=== PATIENT | female | born 1970 | race African-American/Black ===

== ENCOUNTER 2017-04-17 10:18 | Emergency (ER) | payer OTHER ==
[~2017-04-17] VITALS: Ht 162.6 cm; Wt 108.1 kg
[~2017-04-17 10:18] MED LIST: ALPRAZOLAM1 MG PO; ATORVASTATIN CA40 MG PO; BACLOFEN10 MG PO; BENADRYL ALLERG25 MG PO; BENTYL20 MG PO; CARVEDILOL3.125 MG PO; COL-RITE100 M1 PO; COUMADIN10 MG PO; COUMADIN5 MG PO; COUMADIN7.5 MG PO; CYCLOBENZAPRINE10 MG PO; DEPAKOTE125 MG PO; DESYREL100 MG PO; DILAUDID2 MG PO; ELIQUIS5 MG PO; FE C TABLET1 EACH PO; FEOSOL325 MG PO; FLAGYL500 MG PO; FLEXERIL10 MG PO; FOLIC ACID1 MG PO; GABAPENTIN800 MG PO; HYDROCODON-ACE1 EA11 PO; KLONOPIN0.5 M1 PO; KLONOPIN1 MG PO; KLONOPIN2 MG PO; LAMICTAL100 MG PO; LAMICTAL25 MG PO; LEVAQUIN500 MG PO; LEVAQUIN750 MG PO; LEVO-T100 MCG PO; LEVO-T88 MCG PO; LEVOXYL175 MCG PO; LIDOCAINE700 MG TD; LIDODERM 5% P1 PATCH TD; LITHIUM CARBON450 MG PO; MEDROL DOSEPAK4 MG PO; METFORMIN HCL500 MG PO; METHOCARBAMOL500 MG PO; MORPHINE SULFAT15 MG PO; NAPROSYN500 MG PO; NORCO 5/3251 TABLET PO; OXYCODONE HCL15 MG PO; PANTOPRAZOLE SO40 MG PO; PEPCID20 MG PO; PREDNISONE50 MG PO; PROMETHAZINE HC25 M1 PO; PROTONIX40 MG PO; ROBAXIN500 MG PO; SEROQUEL200 MG PO; SEROQUEL300 MG PO; SYNTHROID125 MCG PO; SYNTHROID175 MCG PO; TRAMADOL HCL50 MG PO; TRAZODONE HCL150 MG PO; ULTRAM50 MG PO; VICODIN 5-3001 EACH PO; VITAMIN D2000 INTUN PO; VITAMIN D2000 UNIT PO; VITAMIN E1000 UNI1 PO; XANAX0.5 MG PO; ZOFRAN ODT4 MG PO; ZOFRAN4 MG PO; ZOLOFT100 MG PO
[2017-04-17 13:19] LABS: HEMATOCRIT 34.4 % (36.0-46.0); MCV 93.7 FL (83-99); RBC DIS.WIDTH-CV 17.2 % (11.8-14.6); RBC DIS.WIDTH-SD 59.5 % (39-53); RED BLOOD COUNT 3.67 M/uL (3.80-5.20)
[2017-04-17 13:26] LABS: CHLORIDE 111 mEq/L (99-109); GLUCOSE 103 mg/dL (70-99); POTASSIUM 3.7 mEq/L (3.7-5.4); SODIUM 142 mEq/L (136-147)
[2017-04-17 13:29] LABS: ANION GAP 7 MEQ/L (2-14)
[2017-04-17 13:33] LABS: GFR ESTIMATE (CALCULATED) > 59 mL/min/; UREA NITROGEN (BUN) 9 mg/dL (9-23)
[2017-04-17 13:51] LABS: TROP-I INTERPRETATION NEGATIVE; TROPONIN-I < 0.01 ng/mL (0.0-0.30)
[2017-04-17 14:03] LABS: PLAT.SUFFICIENCY ADEQUATE; PLATELET CLUMPS PRESENT - PLATELET COUNT APPEARS ADQ.; PLATELET COUNT UNABLE TO REPORT K/uL (156-360)
[2017-04-17 15:31] LABS: TROP-I INTERPRETATION NEGATIVE; TROPONIN-I < 0.01 ng/mL (0.0-0.30)
[2017-04-17 15:41] VITALS: BP 122/71
== END 2017-04-17 15:43 | disposition home or self-care (01) ==
LOC: EME 10:18
PROVIDERS: Emergency Medicine
DX: R07.89 Other chest pain (principal); K21.9 Gastro-esophageal reflux disease without esophagitis; F41.9 Anxiety disorder, unspecified; F32.9 Major depressive disorder, single episode, unspecified; Z86.711 Personal history of pulmonary embolism; Z87.442 Personal history of urinary calculi; Z91.040 Latex allergy status; Z88.8 Allergy status to other drugs, medicaments and biological substances
CPT/HCPCS: 71010; 71275; 80048; 84484; 85027; 93005; 99281; 99285; J1200; J2270; J2930; S0028

== ENCOUNTER 2017-05-07 15:04 | Emergency (ER) | payer OTHER ==
[~2017-05-07] VITALS: Ht 162.6 cm; Wt 108.4 kg
[2017-05-07 16:56] LABS: HEMATOCRIT 33.9 % (36.0-46.0); MCH 30.9 PG (29.0-34.0); MCHC 32.7 G/DL (30.0-36.0); MCV 94.4 FL (83-99); RBC DIS.WIDTH-SD 57.4 % (39-53); RED BLOOD COUNT 3.59 M/uL (3.80-5.20); WHITE BLOOD COUNT 10.6 K/uL (4.1-10.2)
[2017-05-07 17:04] LABS: CHLORIDE 106 mEq/L (99-109); POTASSIUM 5.6 mEq/L (3.7-5.4); SODIUM 141 mEq/L (136-147)
[2017-05-07 17:07] LABS: GLUCOSE 187 mg/dL (70-99)
[2017-05-07 17:09] LABS: TOTAL BILIRUBIN 0.2 mg/dL (0.0-1.0)
[2017-05-07 17:10] LABS: ALKALINE PHOSPHATASE 94 IU/L (3-129); GFR ESTIMATE (CALCULATED) > 59 mL/min/
[2017-05-07 17:11] LABS: UREA NITROGEN (BUN) 13 mg/dL (9-23)
[2017-05-07 17:14] LABS: LIPASE 49 U/L (1.0-51.0)
[2017-05-07 17:19] LABS: QUANTITATIVE HCG < 4.0 MIU/ML
[2017-05-07 17:23] LABS: ADD MIUA? YES; BILIRUBIN NEGATIVE; BLOOD NEGATIVE; COLOR YELLOW ((YELLOW)); GLUCOSE (STRIP) NEGATIVE; KETONES 5; LEUKOCYTES NEGATIVE; NITRITE NEGATIVE; PROTEIN (STRIP) 100; SPECIFIC GRAVITY 1.029 (1.000-1.030); UROBILINOGEN 0.2 MG/DL (0.2-1.0)
[2017-05-07 17:37] LABS: MEAN PLAT.VOLUME 11.6 uM^3 (9.5-12.4); PLAT.SUFFICIENCY DECREASED
[2017-05-07 17:39] LABS: PLATELET COUNT 167 K/uL (156-360)
[2017-05-07 17:46] LABS: TROP-I INTERPRETATION NEGATIVE; TROPONIN-I < 0.01 ng/mL (0.0-0.30)
[2017-05-07 18:00] LABS: RED BLOOD CELLS NONE SEEN /HPF (0-5)
[2017-05-07 18:01] LABS: BACTERIA 1+ /HPF; EPITHELIAL CELLS 2+ /HPF; MUCUS 1+ /LPF; UCUL ADDED? NO; WHITE BLOOD CELLS NONE SEEN /HPF (0-5)
[2017-05-07 18:04] LABS: INTER. NORMALIZED RATIO 0.8; PROTHROMBIN TIME 9.5 SEC (10.2-12.9)
[2017-05-07 18:07] LABS: PTT 27.4 SEC (25-37)
[2017-05-07 23:01] LABS: TROP-I INTERPRETATION NEGATIVE; TROPONIN-I < 0.01 ng/mL (0.0-0.30)
[2017-05-07] MEDS ORDERED: ZITHROMAX Z-PA250 MG PO (23:06)
[2017-05-07] MEDS ORDERED: PEPCID20 MG PO (23:11)
[2017-05-07 23:26] VITALS: BP 154/89
== END 2017-05-07 23:27 | disposition home or self-care (01) ==
LOC: EME 15:04
PROVIDERS: Physician Assistant Medical
DX: J18.9 Pneumonia, unspecified organism (principal); R10.31 Right lower quadrant pain; R10.33 Periumbilical pain; K50.90 Crohn's disease, unspecified, without complications; I50.9 Heart failure, unspecified; K21.9 Gastro-esophageal reflux disease without esophagitis; Z86.718 Personal history of other venous thrombosis and embolism; Z86.711 Personal history of pulmonary embolism; Z87.442 Personal history of urinary calculi; Z90.49 Acquired absence of other specified parts of digestive tract; Z98.51 Tubal ligation status; Z98.1 Arthrodesis status; Z96.89 Presence of other specified functional implants
CPT/HCPCS: 71020; 71275; 74177; 80053; 81003; 83690; 84484; 84702; 85027; 85610; 85730; 93005; 93970; 99281; 99285; J1200; J2270; J2405; J2930; J7030

== ENCOUNTER 2017-06-21 10:05 | Emergency (ER) | payer OTHER ==
[~2017-06-21] VITALS: Ht 162.6 cm; Wt 86.2 kg
[~2017-06-21 10:05] MED LIST changes: +ZITHROMAX Z-PA250 MG PO
[2017-06-21 13:54] LABS: EOSINOPHIL (%) 1.3 % (0-5); HEMATOCRIT 29.6 % (36.0-46.0); IMMATURE GRANULOCYTE (%) 0.3 % (0.0-0.7); INSTRUMENT ABS NEUTROPHIL CT 1.7 K/uL; LYMPHOCYTE COUNT 0.7 K/uL (1.0-2.8); MCH 30.2 PG (29.0-34.0); MCHC 31.4 G/DL (30.0-36.0); MCV 96.1 FL (83-99); MEAN PLAT.VOLUME 10.4 uM^3 (9.5-12.4); MONOCYTE (%) 17.8 % (3-12); MONOCYTE COUNT 0.5 K/uL (0-0.8); NEUTROPHIL (%) 57.1 % (45-76); NEUTROPHIL COUNT 1.7 K/uL (1.8-6.4); PLATELET COUNT 180 K/uL (156-360); RBC DIS.WIDTH-CV 14.1 % (11.8-14.6); RBC DIS.WIDTH-SD 49.3 % (39-53); RED BLOOD COUNT 3.08 M/uL (3.80-5.20)
[2017-06-21 14:01] LABS: INTER. NORMALIZED RATIO 0.9; PROTHROMBIN TIME 10.4 SEC (10.2-12.9)
[2017-06-21 14:04] LABS: PTT 25.6 SEC (25-37)
[2017-06-21 14:11] LABS: CHLORIDE 104 mEq/L (99-109); POTASSIUM 3.5 mEq/L (3.7-5.4); SODIUM 142 mEq/L (136-147)
[2017-06-21 14:13] LABS: GLUCOSE 177 mg/dL (70-99)
[2017-06-21 14:14] LABS: ANION GAP 13 MEQ/L (2-14)
[2017-06-21 14:17] LABS: GFR ESTIMATE (CALCULATED) > 59 mL/min/; UREA NITROGEN (BUN) 11 mg/dL (9-23)
[2017-06-21 14:24] LABS: TROP-I INTERPRETATION NEGATIVE; TROPONIN-I < 0.01 ng/mL (0.0-0.30)
[2017-06-21] MEDS ORDERED: SYNTHROID150 MCG PO (16:55)
[2017-06-21] MEDS ORDERED: PRADAXA75 MG PO (16:55)
[2017-06-21] MEDS ORDERED: PEPCID20 MG PO (16:55)
[2017-06-21] MEDS ORDERED: OXYCODONE HCL10 MG PO (16:55)
[2017-06-21] MEDS ORDERED: PROMETHAZINE HC25 M1 PO (16:56)
[2017-06-21] MEDS ORDERED: VITAMIN D400 UNIT PO (16:56)
[2017-06-21] MEDS ORDERED: CARVEDILOL3.125 MG PO (16:56)
[2017-06-21] MEDS ORDERED: ATORVASTATIN CA40 MG PO (16:56)
[2017-06-21] MEDS ORDERED: LOVENOX100 MG/1 M SC (16:57)
[2017-06-21] MEDS ORDERED: ATARAX,VISTARIL50 MG PO (16:57)
[2017-06-21] MEDS ORDERED: METFORMIN HCL1000 MG PO (16:57)
[2017-06-21 17:50] LABS: TROP-I INTERPRETATION NEGATIVE; TROPONIN-I < 0.01 ng/mL (0.0-0.30)
[2017-06-21 18:00] VITALS: BP 145/119
== END 2017-06-21 17:50 | disposition home or self-care (01) ==
LOC: EME 10:05
PROVIDERS: Emergency Medicine
DX: R07.89 Other chest pain (principal); K21.9 Gastro-esophageal reflux disease without esophagitis; F41.9 Anxiety disorder, unspecified; F32.9 Major depressive disorder, single episode, unspecified; Z86.711 Personal history of pulmonary embolism; Z87.442 Personal history of urinary calculi; Z91.040 Latex allergy status; Z88.5 Allergy status to narcotic agent; Z88.6 Allergy status to analgesic agent; Z91.041 Radiographic dye allergy status; Z88.1 Allergy status to other antibiotic agents; Z88.8 Allergy status to other drugs, medicaments and biological substances
CPT/HCPCS: 71010; 71275; 80048; 84484; 85025; 85610; 85730; 93005; 94640; 99281; 99285; J1200; J2270; J2405; J2930; J2997

== ENCOUNTER 2017-08-08 06:09 | Emergency (ER) | payer OTHER ==
[~2017-08-08] VITALS: Ht 165.1 cm; Wt 106.9 kg
[~2017-08-08 06:09] MED LIST changes: +ATARAX,VISTARIL50 MG PO; +LOVENOX100 MG/1 M SC; +METFORMIN HCL1000 MG PO; +OXYCODONE HCL10 MG PO; +PRADAXA75 MG PO; +SYNTHROID150 MCG PO; +VITAMIN D400 UNIT PO
[2017-08-08 08:02] LABS: CHLORIDE 109 mEq/L (99-109); POTASSIUM 3.7 mEq/L (3.7-5.4); SODIUM 141 mEq/L (136-147)
[2017-08-08 08:03] LABS: GLUCOSE 146 mg/dL (70-99)
[2017-08-08 08:06] LABS: HEMATOCRIT 33.4 % (36.0-46.0); HEMOGLOBIN 10.3 G/DL (11.9-15.5); MCH 29.2 PG (29.0-34.0); MCHC 30.8 G/DL (30.0-36.0); MCV 94.6 FL (83-99); RBC DIS.WIDTH-SD 65.1 % (39-53); RED BLOOD COUNT 3.53 M/uL (3.80-5.20); WHITE BLOOD COUNT 3.7 K/uL (4.1-10.2)
[2017-08-08 08:07] LABS: CREATININE 0.9 mg/dL (0.6-1.3); GFR ESTIMATE (CALCULATED) > 59 mL/min/
[2017-08-08 08:08] LABS: UREA NITROGEN (BUN) 16 mg/dL (9-23)
[2017-08-08 08:12] LABS: TROP-I INTERPRETATION NEGATIVE; TROPONIN-I < 0.01 ng/mL (0.0-0.30)
[2017-08-08 08:39] LABS: PLAT.SUFFICIENCY ADEQUATE; PLATELET COUNT 129 K/uL (156-360)
[2017-08-08 09:30] VITALS: BP 108/90
[2017-08-08 10:36] LABS: TROP-I INTERPRETATION NEGATIVE; TROPONIN-I < 0.01 ng/mL (0.0-0.30)
== END 2017-08-08 11:38 | disposition home or self-care (01) ==
LOC: EME 06:09
PROVIDERS: Emergency Medicine
DX: R07.89 Other chest pain (principal); R11.10 Vomiting, unspecified; R19.7 Diarrhea, unspecified; I50.9 Heart failure, unspecified; K21.9 Gastro-esophageal reflux disease without esophagitis; D68.2 Hereditary deficiency of other clotting factors; F41.9 Anxiety disorder, unspecified; F32.9 Major depressive disorder, single episode, unspecified; Z86.711 Personal history of pulmonary embolism; Z87.442 Personal history of urinary calculi; Z90.49 Acquired absence of other specified parts of digestive tract; Z91.040 Latex allergy status; Z88.1 Allergy status to other antibiotic agents; Z88.5 Allergy status to narcotic agent; Z88.6 Allergy status to analgesic agent; Z88.8 Allergy status to other drugs, medicaments and biological substances; Z91.041 Radiographic dye allergy status
CPT/HCPCS: 71275; 80048; 84484; 85027; 93005; 99281; 99285; J1200; J2270; J2405; J3010; J7030; S0028